=== PATIENT | female | born 1965 | race Native Hawaiian/Other Pacific Islander ===

== ENCOUNTER → 2020-08-19 | Outpatient (CLI) | payer BC, OTHER ==
[~2020-08-19] MED LIST: ALEVE220 MG; NORCO 5-325 TA1 EACH PO
== END ==
LOC: RAD 12:31
PROVIDERS: ATTEND Family Medicine
DX: M54.5 Low back pain (principal)

== ENCOUNTER → 2021-03-06 | Outpatient (CLI) | payer BC, OTHER | LOC: RAD 12:39 | PROVIDERS: ATTEND Family Medicine | DX: M25.561 Pain in right knee (principal) ==